=== PATIENT | male | born 1970 ===

== ENCOUNTER → 2024-03-09 12:47 | Outpatient (BNVA) | payer MEDICARE, MEDICAID, SELFPAY | PROVIDERS: Visit Provider Orthopaedic Surgery | DX: M54.2 Cervicalgia (principal); M54.9 Dorsalgia, unspecified | CPT/HCPCS: 72050; 72110; 99204 ==

== ENCOUNTER 2024-04-06 09:27 | Outpatient (CLI) | payer MEDICARE, MEDICAID, SELFPAY ==
--- NOTE | 2024-04-06 10:15 | MR_ITS ---
WS: [id number] MRI LUMBAR SPINE NONCONTRAST TECHNIQUE: Sagittal T1, T2 and STIR imaging. Axial T1 and T2 imaging. CLINICAL INFORMATION: back pain COMPARISON: None. FINDINGS: Mild lumbar curve. No acute compression. No high-grade central canal stenosis. L1-L2: Mild annular bulging. Moderate facet arthropathy. Spinal canal and foramen are patent. L2-L3: Mild annular bulging with slight effacement of the ventral thecal sac. Moderate facet arthropa thy. Foramen are patent. L3-L4: Mild annular bulging with slight effacement of the ventral thecal sac. Moderate facet arthropa thy. Small RIGHT foraminal protrusion with mild RIGHT foraminal narrowing. L4-L5: Mild annular bulging. Slight impingement LEFT subarticular recess. Moderate facet arthropathy. LEFT foraminal protrusion slightly impinges the exiting LEFT L4 nerve root with mild to moderate LEF T foraminal narrowing. L5-S1: No significant disc bulging. Spinal canal and foramen are patent. Moderate facet arthropathy. Visualized pelvic bony structures: Normal. Paravertebral soft tissues: Normal. Partially visualized small LEFT renal cysts. MR/MR lumbar spine wo con* [id number] IMPRESSION: Some images degraded by motion. 1. Mild lumbar curve. No acute compression. No high-grade central canal stenos is. 2. Small RIGHT L3-4 foraminal protrusion slightly impinges the exiting RIGHT L 3 nerve root. 3. Small LEFT L4-5 foraminal protrusion impinges the exiting LEFT L4 nerve alma t with mild to moderate LEFT foraminal narrowing. Recommend correlation with L4 nerve root symptoms. 4. Mild annular bulge L3-4 with slight effacement of ventral thecal sac and mi ld narrowing of the subarticular recess bilaterally. Mild narrowing of the LEFT L4-5 subarticular recess. 5. Moderate facet arthropathy L2-L5.
== END 2024-04-06 09:28 | disposition home or self-care (01) ==
LOC: RAD 09:28
PROVIDERS: Visit Provider Orthopaedic Surgery
DX: M54.9 Dorsalgia, unspecified (principal); M51.26 Other intervertebral disc displacement, lumbar region; M47.816 Spondylosis without myelopathy or radiculopathy, lumbar region
CPT/HCPCS: 72148

== ENCOUNTER → 2024-04-20 13:59 | Outpatient (BNVA) | payer MEDICARE, MEDICAID, SELFPAY | PROVIDERS: Visit Provider Orthopaedic Surgery | DX: M48.062 Spinal stenosis, lumbar region with neurogenic claudication (principal) | CPT/HCPCS: 99214 ==

== ENCOUNTER 2024-06-27 11:20 | Outpatient (RCR) | payer MEDICARE, SELFPAY | END 2024-06-28 23:59 | disposition home or self-care (01) | LOC: MPT 11:20 | PROVIDERS: Visit Provider Orthopaedic Surgery | DX: M48.062 Spinal stenosis, lumbar region with neurogenic claudication (principal) | CPT/HCPCS: 97110; 97162 ==

== ENCOUNTER 2024-06-29 06:00 | Outpatient (RCR) | payer MEDICARE, SELFPAY | END 2024-07-29 23:59 | disposition home or self-care (01) | LOC: MPT 06:00 | PROVIDERS: Visit Provider Orthopaedic Surgery | DX: M48.062 Spinal stenosis, lumbar region with neurogenic claudication (principal) | CPT/HCPCS: 97110; 97140; G0283 ==